=== PATIENT | female | born 1945 | race Caucasian/White ===

== ENCOUNTER 2018-07-27 16:02 | Observation (INO) | payer OTHER ==
[~2018-07-27] VITALS: Ht 160 cm; Wt 65.5 kg
--- NOTE | ~2018-07-27 | O ---
[facility] [place] [address] OPERATIVE REPORT Name: FRANKIANG Rashaad Room #: 431-P ADM IN M.R.#: [id number] Admission: 07/27/18 ������������������ Attend Phys: Varsha Witt, Discharge: ������������������ Date of : 49 Report #: [id number] THIS REPORT FOR: //name// CC: CASPER ELAM Physician staff Varsha Witt DATE OF SERVICE: 07/27/2018 PREOPERATIVE DIAGNOSIS: Right index finger infection including skin, subcutaneous tissue and the distal interphalangeal joint. POSTOPERATIVE DIAGNOSIS: Right index finger infection including skin, subcutaneous tissue and the distal interphalangeal joint. PROCEDURE PERFORMED: Incision and debridement of right index finger, skin, subcutaneous tissue and distal interphalangeal joint. SURGEON: Varsha Witt MD ANESTHESIA: Local MAC anesthesia. ESTIMATED BLOOD LOSS: 2 mL TOURNIQUET TIME: 11 minutes. SPECIMEN: Swab and tissue was sent to microbiology. INDICATIONS: The patient is a 73-year-old female who previously had undergone a mucous cyst excision with joint debridement. She presented to my office today with persistent soft tissue swelling, erythema, purulent drainage and pain. We discussed the diagnosis as well as treatment options including but not limited to, inability to resolve the infection necessitating more surgery, wound healing problems, damage to blood vessels, nerves and other structures. Informed consent was obtained. The correct extremity was identified and labeled by myself after verbal confirmation of the patient as well as visual confirmation and signed informed consent. DESCRIPTION OF PROCEDURE: The patient was brought back to the operating room and placed on the operating table in supine position. No preoperative antibiotics were given. She was given 1 g of vancomycin in the operating room after the cultures have been taken and directly after the tourniquet was deflated. The right extremity was sterilely prepped and draped in usual fashion. Final timeout was taken to verify correct patient, operative procedure, operative site, all concurred. The arm was elevated, exsanguinated proximal to the wrist and the tourniquet inflated. The prior surgical incision [address] [address] OPERATIVE REPORT Name: ANG DOAN Room #: 431-P [facility] IN M.R.#: [id number] Admission: 07/27/18 ������������������ Attend Phys: Varsha Witt, Discharge: ������������������ Date of : 49 Report #: [id number] was opened. There was a superficial layer of skin desquamation that was debrided. There was no purulent fluid, but whitish tissue that was removed. The extensor tendon was extremely thinned. The joint was immediately entered and thoroughly debrided with a synovial rongeur and new pair of tenotomy scissors. Any non-healthy white tissue was excised. The joint was then irrigated thoroughly using a 14-gauge angiocatheter and an Asepto with antibiotic saline. Once this area was cleaned, 2 simple 4-0 nylon stitches were used to close the tissue over the bone and joint. The wound was dressed with dry gauze. The tourniquet was deflated. The finger had brisk capillary refill at the conclusion of the case after deflation of tourniquet and after application of the dressing. All sponge and needle counts were correct. The patient was transferred to postoperative recovery room in stable condition. ��������������������������������������������� ���������������������������������������� By: ��������������������������������������������� 1902 [id number] Varsha Witt MD /nt
[~2018-07-27 16:02] MED LIST: ACETAMINOPHEN-1 EAC1 PO; ACTOS15 MG PO; AMARYL4 MG PO; CYMBALTA60 MG PO; GLUCOPHAGE1000 MG PO; MOBIC7.5 MG PO; MULTIVITAMINS PO; NORCO 5-325 TA1 EACH PO; VESICARE 5 MG TA5 MG PO; VOLTAREN GEL 1100 G1 TOP
[2018-07-27 18:21] VITALS: BP 126/60
[2018-07-27 19:26] LABS: BASOPHILS 1.2 % (0.0-2.0); EOSINOPHILS 2.7 % (0.0-3.0); HEMOGLOBIN 11.6 gm/dL (12.0-15.0); LYMPHOCYTES 19.2 % (24.0-44.0); MCH 26.1 pg (26.0-34.0); MCHC 33.1 g/dL (28.0-37.0); MONOCYTES 8.4 % (1.0-8.0); PLATELET COUNT 313 thou/uL (150-400); POLYS 68.5 % (36.0-66.0); RBC 4.44 mil/uL (4.20-5.00); RDW 16.8 % (10.5-14.5); WBC 5.8 thou/uL (4.0-11.0)
[2018-07-27 19:35] LABS: CALCIUM 8.9 mg/dL (8.5-10.1); CREATININE 0.7 mg/dL (0.6-1.0); POTASSIUM 3.5 mmol/L (3.5-5.1)
[2018-07-27 19:41] LABS: ALBUMIN 3.2 g/dL (3.4-5.0); TOTAL BILIRUBIN 0.3 mg/dL (<0.1-1.0); TOTAL PROTEIN 6.5 g/dL (6.4-8.2)
[2018-07-27 20:30] VITALS: BP 123/58
[2018-07-27 21:42] VITALS: BP 120/54
[2018-07-27 22:40] VITALS: BP 123/67
--- NOTE | 2018-07-28 02:19 | NUR ---
PT WAS ADMITTED TO THE UNIT P[facility] PACU IN THE COMPANY OF HER FAMILY IN A STABLE CONDITION.PT C/O PAIN ON HER R INDEX FINGER,MED ADMINISTERED,NOT EFFECTIVE,ICE APPLIED,NOT EFFECTIVE,CADD INSTRUCTOR ON DUTY NOTIFIED,ORDER NOTED AND CARRIED OUT.DRSG ON HER FINGER C/D/I.SCD ON JAMA OWER EXT.PT SLEEPING AT THIS TIME ON HER BED.FALL PRECAUTIONS IN PLACE.CALL LIGHT WITHIN REACH.
[2018-07-28 04:30] VITALS: BP 114/53
[2018-07-28 08:11] VITALS: BP 123/57
[2018-07-28 10:06] LABS: GLYCOHEMOGLOBIN (HGB A1C) 7.3 % (4.8-5.6)
--- NOTE | 2018-07-28 10:49 | NUR ---
CONSULTED TO PLACE A PICC FOR A PATIENT DISCHARING TO HOME WITH IV ANTIBIOTICS. ORDER AND CONSENT NOTED. THE PROCEDURE WELL BENIFITS AND RISKS OF INFECTION AND DVT WERE DISCUSSED WITH THE PATIENT AND SHE VERBALIZED UNDERSTANDING. THE RIGHT UPPER ARM BASILIC WAS WIDLEY PATENT. A #4F SINGLE LUMEN POWER PICC WAS PLACED AFTER A BEDSIDE TIMEOUT WAS COMPLETED. THE PICC WAS TRIMMED TO 39CM AND ADVANCED WITHOUT DIFFICULTY. LINE WAS SECURED AND A STAT CHEST XRAY WAS ORDERED FOR CONFIRMATION
--- NOTE | 2018-07-28 12:11 | NUR ---
ASSESSMENT-PT LIVES IN A HOUSE WITH HER . PRIOR TO ADMISSION PT WAS INDEPENDENT OF ADLS AND AMBULATION. PT DRIVES. HER DTR AND 2 GRANDCHILDREN LIVE WITH THEM. PT HAS HAD [facility] IN THE PAST AND WOULD LIKE TO USE THEM AGAIN. EXPLAINED OPTIONS FOR IV ABX. FOLLOWING TO ASSIST WITH DC PLANNING. OFFERED CHOICES WITHIN HER INS NETWORK. PT CHOSE [facility] AND [facility]. FAXED REFERRAL TO CHECK BENEFITS TO [facility].
--- NOTE | 2018-07-28 14:06 | NUR ---
DR Jerod MCGINNISHA HERE TO SEE PT AND SHE TELLS HIM THAT THERE WOULD BE TOO MUCH COMMOTION AT MY HOUSE AND SHE WOULD LIKE TO COME HERE FOR OUTPT INFUSION. FAXED ORDERS TO [facility] IN OUTPT INFUSION AND S/W HER TO ALERT OF THIS. PT PREFERS TO COME IN THE MORNINGS IF POSSIBLE.
[2018-07-28 15:11] VITALS: BP 123/57
[2018-07-28 15:46] VITALS: BP 124/63
--- NOTE | 2018-07-28 18:07 | NUR ---
SPOKE WITH DR ALANIS GAVE VERBAL ORDER TO DISCHARGE PATIENT HOME. HAS INFUSION THERAPY SCEDULED INFO ON DISCHARGE PAPERS. WOUND ORDERS AND SUPPLIES SENT WITH PATIENT. ALL BELONGINGS SENT WITH PATIENT. PICC LINE PLACED TODAY TO RIGHT UPPER ARM.
--- NOTE | 2018-07-28 20:31 | NUR ---
PATIENT DISCHARGED AT 191. DAUGHTER HERE TO TAKE HER HOME. ALL BELONGINGS PACKED AND SENT WITH PATIENT ALL DISCHARGE PAPERS SIGNED AND COPY IN CHART VOLUNTER HERE TO TAKE PATIENT VIA W/C TO MAIN ENTRANCE AND FAMILY CAR. NO PAIN OR RESP DISTRESS AT DISCHARGE.
[2018-07-29] MEDS ORDERED: METFORMIN HCL500 MG PO (10:26)
[2018-07-29] MEDS ORDERED: OXYBUTYNIN 5 MG5 M2 PO (10:28)
[2018-07-29] MEDS ORDERED: DEXILANT30 MG PO (10:29)
[2018-07-29] MEDS ORDERED: JARDIANCE25 MG PO (10:31)
[2018-07-29] MEDS ORDERED: TRESIBA FL100 UNIT/1 SUBQ (10:33)
[2018-07-29] MEDS ORDERED: ATORVASTATIN CA40 MG PO (10:34)
[2018-07-29] MEDS ORDERED: VISTARIL 25 MG25 M1 PO (10:35)
[2018-07-29] MEDS ORDERED: TRAMADOL 50 MG50 MG PO (10:36)
[2018-07-29] MEDS ORDERED: REQUIP5 MG PO (10:38)
--- NOTE | 2018-08-02 16:34 | HC ---
[facility] [place] [address] CONSULTATION Name: ANG DOAN Room #: 431-P [facility] Shelia Scruggs#: [id number] Admission: 07/27/18 ������������������ Attend Phys: Varsha Witt, Discharge: 07/28/18 ������������������ Date of : 47 Report #: [id number] THIS REPORT FOR: //name// CC: CASPER ELAM Physician staff Varsha Witt DATE OF SERVICE: 07/28/2018 TYPE OF REPORT: Infectious disease consultation. REASON FOR CONSULTATION: I was asked to evaluate concerning surgical site infection, right second finger. HISTORY OF PRESENT ILLNESS: The patient is a 73-year-old who had a longstanding history of right distal phalanx mucous cyst that involved the DIP joint. On 07/19/2018, Dr. Witt did an excision of such and debridement. Postoperatively, developed increased pain, swelling and erythema. The pain was persistent with lancing type pain, did not improve with oral narcotics. Developed erythema that extended up to the MCP joint region. Seen in the Emergency Room and placed on cephalexin. No improvement with this. She was seen back by Dr. Witt and performed x-rays, which showed no evidence of bony change. She was taken to Surgery yesterday for debridement of the soft tissues and joint. Gram stains are pending. Cultures are pending. The patient has had no fever, chills or sweats. Blood sugar control has been less than 200 fasting. Hemoglobin A1c was 7.3. She is a nonsmoker. She reports no other specific trauma postop. She has had no rashes or other systemic illnesses noted. ALLERGIES: CODEINE with GI upset. MEDICATIONS: As noted on her MAR, which were reviewed. Now on vancomycin. PAST MEDICAL HISTORY: Diabetes, hyperlipidemia, restless leg syndrome, degenerative arthritis, iron-deficiency anemia, gastroesophageal reflux, depression, hysterectomy, bilateral total knee arthroplasties, neck and lumbar back surgeries and kidney stone extraction. FAMILY HISTORY: Heart disease. SOCIAL HISTORY: Nonsmoker. No significant alcohol intake. REVIEW OF SYSTEMS: Ten-point review was negative other than what has been described above. PHYSICAL EXAMINATION: [facility] [address] [place] [address] CONSULTATION Name: ANG DOAN Room #: 431-P [facility] Shelia Scruggs#: [id number] Admission: 07/27/18 ������������������ Attend Phys: Varsha Witt, Discharge: 07/28/18 ������������������ Date of : 49 Report #: [id number] VITAL SIGNS: She is afebrile and hemodynamically stable. GENERAL: She was alert and cooperative and pleasant with no acute distress. SKIN: Without rash or decubitus other than what will be described in her extremity examination. No palpable lymphadenopathy. HEENT: Eyes: Without scleral icterus. Mouth: She was edentulous with no lesions. NECK: Supple, with no thyromegaly or mass. LUNGS: Clear. HEART: Regular, without murmur, gallop or rub. ABDOMEN: Soft and nontender. GENITORECTAL: Not performed. EXTREMITIES: Right second finger erythematous from tip to MCP region. There was surgical change involving the dorsum of her DIP joint. Moderate amount of surrounding inflammation and serous drainage noted. The finger was anesthetic to the distal phalanx. She had limited range of motion in the PIP and DIP joint. There is erythema and swelling that extended from her distal phalanx to her MCP joint region. Capillary refill was normal. Pulses in the wrist were normal. Cranial nerves intact. Strength in her upper and lower extremities is normal. Pulses in the wrist were normal. RADIOLOGICAL DATA: Chest x-ray, clear. LABORATORY DATA: Hemoglobin A1c 7.3. Sedimentation rate 68. Creatinine 0.7. Liver function test normal. Hemoglobin 11.6; platelet count 313,000 and WBC 5.8. Cultures from the blood are pending. Culture of the wound for bacteria, fungus and AFB are pending. IMPRESSION: 1. Right index finger surgical site infection with deep tissue involvement along with septic distal interphalangeal joint arthritis. 2. Diabetes. 3. Postoperative from mucous cyst excision and joint debridement 9 days ago. RECOMMENDATIONS: We will continue IV antibiotic therapy. The patient desired to present to the outpatient infusion center daily. We will go with daptomycin pending culture results. Check laboratory studies and CPK. We will adjust her antibiotics pending further culture information. The patient will continue with diabetic management keeping blood glucose less than 150. She will continue localized wound care and rehabilitation through occupational therapy as appropriate. ��������������������������������������������� <ELECTRONICALLY SIGNED> ���������������������������������������� By: Keven Gonzalez MD ��������������������������������������������� 08/02/18 1634 [id number] Keven Gonzalez MD /nt
== END 2018-07-28 19:15 | disposition home or self-care (01) ==
LOC: TBA 16:02 → 4E 16:02
PROVIDERS: ADMIT Orthopaedic Surgery Hand Surgery
DX: L08.89 Other specified local infections of the skin and subcutaneous tissue (principal); M00.9 Pyogenic arthritis, unspecified; E11.9 Type 2 diabetes mellitus without complications; M19.90 Unspecified osteoarthritis, unspecified site; G25.81 Restless legs syndrome; D50.9 Iron deficiency anemia, unspecified; F32.9 Major depressive disorder, single episode, unspecified; Z79.4 Long term (current) use of insulin; Z79.899 Other long term (current) drug therapy
CPT/HCPCS: 27000; 50010; 50101; 50386; 56526; 57091; 57178; 62110; 62850; 70005

== ENCOUNTER → 2018-07-30 | Outpatient (CLI) | payer OTHER ==
[~2018-07-30] MED LIST changes: +ATORVASTATIN CA40 MG PO; +DEXILANT30 MG PO; +GLUCOPHAGE XR500 MG PO; +JARDIANCE25 MG PO; +METFORMIN HCL500 MG PO; +OXYBUTYNIN 5 MG5 M2 PO; +REQUIP5 MG PO; +RESTORIL7.5 MG PO; +TRAMADOL 50 MG50 MG PO; +TRESIBA FL100 UNIT/1 SUBQ; +VISTARIL 25 MG25 M1 PO
[2018-07-30 09:10] VITALS: BP 119/62
--- NOTE | 2018-07-30 09:28 | NUR ---
HERE FOR DAILY IV DAPTOMYCIN INFUSION. REPORTS DOING OK. DENIED NOTING ANY FEVERS BUT DID SAY SHE HAS BEEN HAVING SWEATS OFF AND ON FOR DAYS. SLIGHT NAUSEA YESTERDAY, OK TODAY. R FINGER PAINFUL. TAKING HYDROCODONE FOR THIS. ENCOURAGED PT TO KEEP HAND ELEVATED MUCH POSSIBLE. DRESSING ON FINGER D/I. PT IS WASHING WOUND AND CHANGING DRESSING 3 x A DAY AT HOME. ENCOURAGED PT TO GET A THERMOMETER TO CHECK HER TEMP A COUPLE TIMES/DAY, ESPECIALLY AFTER THE CHILLS. TOLERATED INFUSION TODAY WITHOUT INCIDENT. NO S/S REACTION. PICC LINE LOOKS GOOD. INSTRUCTION GIVEN TO PT TO REPORT TO THE ED OVER THE WEEKEND FOR HER INFUSION THEN BACK TO US ON THURSDAY.
== END ==
LOC: OPONC 07:25
DX: M00.9 Pyogenic arthritis, unspecified (principal)
CPT/HCPCS: 95000

== ENCOUNTER → 2018-07-31 | Outpatient (CLI) | payer OTHER | LOC: OPONC 11:16 | DX: M00.9 Pyogenic arthritis, unspecified (principal) | CPT/HCPCS: 95000 ==

== ENCOUNTER → 2018-08-01 | Outpatient (CLI) | payer OTHER | LOC: OPONC 11:17 | DX: M00.9 Pyogenic arthritis, unspecified (principal) | CPT/HCPCS: 95000 ==

== ENCOUNTER → 2018-08-02 | Outpatient (CLI) | payer OTHER ==
[~2018-08-02] MED LIST changes: -GLUCOPHAGE XR500 MG PO; -RESTORIL7.5 MG PO
[2018-08-02 13:12] VITALS: BP 125/74
--- NOTE | 2018-08-02 13:46 | NUR ---
IN FOR DAPTOMYCIN INFUSION FOR RIGHT 2ND FINGER DIP JOINT SEPTIC ARTHRITIS. STATED HAVING 1 DIARRHEA STOOL DAILY, HAD A BOUT OF CHILLS THIS AM THAT LASTED FOR APPROXIMATELY 15 MINUTES. SHE THEN TOOK SOME TYLENOL. ASKED PATIENT TO TAKE HER TEMPERATURE IF SHE HAS ANY MORE CHILLS AND IF GREATER THAN [address] HADDAD AND REPORT IT TO US. DENIED NAUSEA, PAIN, INCREASED MUSCLE WEAKNESS. STATED HAS A POOR APPETITE AND FOOD JUST DOES NOT APPEAL TO HER. ENCOURAGED PATIENT TO TRY TO EAT ANYTHING THAT APPEALS TO HER. TOLERATED INFUSION WELL WITH NO ADVERSE REACTION NOTED. PICC SITE WNL AND RECEIVED GOOD BLOOD RETURN. TO RETURN TOMORROW FOR NEXT INFUSION. DISMISSED IN STABLE CONDITION.
== END ==
LOC: OPONC 08:39
DX: M00.9 Pyogenic arthritis, unspecified (principal)
CPT/HCPCS: 95000

== ENCOUNTER → 2018-08-03 | Outpatient (CLI) | payer OTHER ==
[2018-08-03 09:05] VITALS: BP 121/70
--- NOTE | 2018-08-03 10:06 | NUR ---
HERE FOR DAILY IV DAPTOMYCIN INFUSION. REPORTS DOING WELL. CONTINUES TO CHANGE DRESSING AT HOME AND WASH FINGER TID. KEEPING RT PICC LINE PROTECTED, DSG INTACT. TAKING TEMPS DURING DAY AND NOT NOTICING A FEVER. STATES LESS NIGHT SWEATS AND CHILLING, NONE IN A COUPLE NIGHTS. POOR APPETITE AND SLIGHT DIARRHEA WHICH SHE STATES IS BASELINE FOR HER. DENIES MUSCLE WEAKNESS OR PAINS. TOLERATED TODAY'S INFUSION WITHOUT INCIDENT. DISMISSED IN STABLE CONDITION. WILL RETURN IN THE MORNING.
== END ==
LOC: OPONC 00:12
DX: M00.9 Pyogenic arthritis, unspecified (principal)
CPT/HCPCS: 95000

== ENCOUNTER → 2018-08-04 | Outpatient (CLI) | payer OTHER ==
[2018-08-04 09:10] VITALS: BP 142/79
[2018-08-04 09:26] LABS: HEMATOCRIT 36.5 % (37.0-47.0); HEMOGLOBIN 12.1 gm/dL (12.0-15.0); MCH 25.7 pg (26.0-34.0); MCHC 33.2 g/dL (28.0-37.0); MCV 77.4 fL (80.0-100.0); RBC 4.72 mil/uL (4.20-5.00); RDW 16.7 % (10.5-14.5); WBC 4.9 thou/uL (4.0-11.0)
[2018-08-04 09:43] LABS: ALBUMIN 3.5 g/dL (3.4-5.0); CALCIUM 9.2 mg/dL (8.5-10.1); CREATININE 0.7 mg/dL (0.6-1.0); POTASSIUM 3.7 mmol/L (3.5-5.1); TOTAL BILIRUBIN 0.2 mg/dL (<0.1-1.0); TOTAL PROTEIN 6.9 g/dL (6.4-8.2)
--- NOTE | 2018-08-04 09:50 | NUR ---
HERE FOR DAILY IV DAPTOMYCIN. REPORTS DOING OK BUT NOTICED INCREASE LEVEL OF FATIGUE YESTERDAY AND TODAY. NO OTHER ISSUES NOTED. CONTINUING TO CLEANSE R 2ND FINGER TID AND REDRESS AFTER. DRS D/I. LABS DRAWN TODAY PER PICC. TOLREATED INFUSION WITHOUT INCIDENT. PLANS TO SEE DR. HADDAD HERE ON THU. SEEING DR. ALANIS TODAY. DISMISSED IN STABLE CONDITIO. WILL RETURN HERE IN THE MORNING.
== END ==
LOC: OPONC 01:51
PROVIDERS: Specialist
DX: M00.9 Pyogenic arthritis, unspecified (principal)
CPT/HCPCS: 95000

== ENCOUNTER → 2018-08-05 | Outpatient (CLI) | payer OTHER ==
[~2018-08-05] MED LIST changes: +GLUCOPHAGE XR500 MG PO; +RESTORIL7.5 MG PO
[2018-08-05 09:00] VITALS: BP 120/66
--- NOTE | 2018-08-05 09:40 | NUR ---
IN FOR DAILY IV DAPTOMYCIN. REPORTS DOING OK. FATIGUED IN THE EVENING BUT AWAKENS FEELING OK. DENIES N/V/DIARRHEA, FEVER/CHILLS/SWEATS. NO CONCERNS NOTED. SAW DR. ALANIS YESTERDAY AND PLANS TO RETURN AGAIN IN ONE WEEK. CONTINUES TO CHANGE FINGER DRESSING AND WASH FINGER TID. DRESSING TODAY D/I, NO REDNESS NOTED AT BASE OF FINFER, MOST OF FINGER COVERED. DISMISSED IN STABLE CONDIITION. WILL RETURN AGAIN IN THE MORNING AND WILL SEE DR. HADDAD AT THAT VISIT.
== END ==
LOC: OPONC 00:54
DX: M00.9 Pyogenic arthritis, unspecified (principal)
CPT/HCPCS: 95000

== ENCOUNTER → 2018-08-06 | Outpatient (CLI) | payer OTHER ==
[2018-08-06 15:34] VITALS: BP 122/71
--- NOTE | 2018-08-06 15:37 | NUR ---
IN FOR DAILY DAPTOMYCIN INFUSION. DENIED N/V, F/C, DIARRHEA. TOLERATED INFUSION WITHOUT INCIDENT. DR. HADDAD VISITED. TO CONTINUE THE SAME. REMINDED PATIENT TO GO TO ED THROUGHT THURSDAY FOR INFUSIONS WE ARE CLOSED ON THURSDAY FOR . STATED UNDERSTANDING. DISMISSED IN STABLE CONDITION.
== END ==
LOC: OPONC 00:13
DX: M00.9 Pyogenic arthritis, unspecified (principal); A49.02 Methicillin resistant Staphylococcus aureus infection, unspecified site
CPT/HCPCS: 95000

== ENCOUNTER → 2018-08-07 | Outpatient (CLI) | payer OTHER | LOC: OPONC 08:30 | DX: M00.9 Pyogenic arthritis, unspecified (principal) | CPT/HCPCS: 95000 ==

== ENCOUNTER → 2018-08-08 | Outpatient (CLI) | payer OTHER | LOC: OPONC 08-07 08:33 | DX: M00.9 Pyogenic arthritis, unspecified (principal) | CPT/HCPCS: 95000 ==

== ENCOUNTER → 2018-08-09 | Outpatient (CLI) | payer OTHER | LOC: OPONC 08-06 11:14 | DX: M00.9 Pyogenic arthritis, unspecified (principal) | CPT/HCPCS: 95000 ==

== ENCOUNTER → 2018-08-10 | Outpatient (CLI) | payer OTHER ==
[2018-08-10 12:40] VITALS: BP 133/70
--- NOTE | 2018-08-10 12:42 | NUR ---
IN FOR DAILY DAPTOMYCIN INFUSION. STATED HAVING SOME NAUSEA FOR THE LAST 2 DAYS, HOWEVER WAS ABLE TO EAT YESTERDAY. STATED ALSO HAD SOME DIARRHEA. STATED PAIN TO RIGHT FINGER #4. SPOKE WITH DR. HADDAD AND CALLED IN A PRESCRIPTION FOR ZOFRAN. TOLERATED INFUSION WITHOUT INCIDENT. TO RETURN TOMORROW FOR NEXT INFUSION. DISMISSED IN STABLE CONDITION.
== END ==
LOC: OPONC 00:37
DX: M00.9 Pyogenic arthritis, unspecified (principal)
CPT/HCPCS: 95000

== ENCOUNTER 2018-08-11 05:27 | Day surgery (SDC) | payer OTHER ==
[~2018-08-11] VITALS: Ht 160 cm; Wt 62.1 kg
--- NOTE | ~2018-08-11 | O ---
[facility] [place] [address] OPERATIVE REPORT Name: ANG DOAN Room #: 150-6 [facility] M..#: [id number] Admission: 08/11/18 ������������������ Attend Phys: Varsha Witt, Discharge: ������������������ Date of : 49 Report #: [id number] THIS REPORT FOR: //name// CC: FAM unknown Varsha Witt DATE OF SERVICE: 08/11/2018 PREOPERATIVE DIAGNOSES: Right index finger osteomyelitis with infection. POSTOPERATIVE DIAGNOSES: Right index finger osteomyelitis with infection. PROCEDURE PERFORMED: Right index finger incision and debridement of skin, subcutaneous tissue and bone. SURGEON: Varsha Witt MD. ANESTHESIA : General mask. ESTIMATED BLOOD LOSS: Approximately 1 mL. TOURNIQUET TIME: 70 minutes. COMPLICATIONS: Sent to pathology and microbiology. COMPLICATIONS: None. CONDITION: Stable. DISPOSITION: Recovery room. INDICATIONS: The patient is a 73-year-old female who has had wound healing problems and progressive extension of her infection. She now is found to have osteomyelitis of the distal phalanx. The risks, benefits, alternatives and complications were discussed including but not limited to inability to resolve the infection necessitating more surgery, possibly an amputation, wound healing problems, and she will have a chronic deformity to the finger. DESCRIPTION OF PROCEDURE: Informed consent was obtained. The correct extremity was identified and labeled by myself after verbal confirmation of the patient as well as visual confirmation and signed informed consent. DESCRIPTION OF PROCEDURE: The patient was brought back to the operative room and placed on the operating table in supine position. Right upper extremity was sterilely prepped and draped in the usual fashion. A timeout was taken to verify correct patient, operative procedure and site, all concurred. The [address] [address] OPERATIVE REPORT Name: FRANKIANG Rashaad Room #: 150-6 [facility] M..#: [id number] Admission: 08/11/18 ������������������ Attend Phys: Varsha iWtt, Discharge: ������������������ Date of : 49 Report #: [id number] forearm tourniquet was utilized. The arm was not exsanguinated or elevated. Next, the eschar was removed from the dorsum of the finger, the wound was entered. There was a 5 mm area on the ulnar border that had not healed and fibrinous tissue was obtained. The dorsal aspect of the P3 was evaluated. The bone was very soft. Any soft bone was removed with a curette. The area was then thoroughly irrigated with 2 liters of antibiotic saline. Fluoroscopy was brought in, which showed significant bony destruction of the distal phalanx. Once the wound was thoroughly irrigated, the finger was extended. The wound was closed with 4-0 nylon suture. The wound was dressed with Xeroform and sterile gauze. She was placed in a finger splint in order to allow healing. All fingers were pink with brisk capillary refill at the conclusion of case after deflation of the tourniquet and after application of the dressing. All sponge and needle counts were correct. The patient was transferred to postoperative recovery room in stable condition. ��������������������������������������������� ���������������������������������������� By: ��������������������������������������������� 0751 [id number] Varsha Witt MD /nt
[2018-08-11 07:37] VITALS: BP 122/65
[2018-08-11 08:05] VITALS: BP 122/65
--- NOTE | 2018-08-11 08:16 | EKG ---
[address] [address] ELECTROCARDIOGRAM REPORT Name: ANG DOAN Room #: 150-6 [facility].#: [id number] ������������������ Admission: 08/11/18 ������������������ Attend Phys: Varsha Witt, Discharge: ������������������ Date of : 49 Report #: [id number] ����������������������������������������������������������������� [id number] THIS REPORT FOR: //name// [facility] Test Date: 2018-08-11 Test Time: 06:31:28 Pat Name: ANG DOAN Department: Room: 150 6 Gender: F Pot Reliner: dione : 1945 Requested By: Lesly Power Order Number: [id number] MD: Michael Ragland Measurements Intervals [place] Rate: 71 P: 32 [place]: 153 QRS: -7 QRSD: 74 T: 32 QT: 408 QTc: 444 Interpretive Statements Sinus rhythm Left ventricular hypertrophy Baseline wander in lead(s) V6 Compared to ECG 05/11/2007 13:44:53 Left ventricular hypertrophy now present Electronically Signed On 08-11-2018 8:16:41 CDT by Michael Ragland [email or web address] ��������������������������������������������� <ELECTRONICALLY SIGNED> ���������������������������������������� By: Michael Ragland MD ��������������������������������������������� 08/11/18 0816 0 Michael Ragland MD /EPI
[2018-08-11 09:05] VITALS: BP 120/64
[2018-08-11 09:10] LABS: HEMATOCRIT 33.8 % (37.0-47.0); HEMOGLOBIN 11.2 gm/dL (12.0-15.0); MCH 25.9 pg (26.0-34.0); MCHC 33.2 g/dL (28.0-37.0); RBC 4.33 mil/uL (4.20-5.00); RDW 16.7 % (10.5-14.5); WBC 6.2 thou/uL (4.0-11.0)
--- NOTE | 2018-08-11 09:17 | NUR ---
HERE FOR DAILY DAPTOMYCIN INFUSION. ARRIVED DIRECTLY FROM PACU S/P I&D R 2ND FINGER. DRESSING D/I, HAND ELEVATED ON PILLOW, ICE PACK KEPT IN PLACE. PT AND STATE THEY HAVE RECEIVED ALL THEIR INSTRUCTIONS FROM SURGERY AND VERBALIZE THAT PT IS TO KEEP FINGER DRESSED AND DRY UNTIL SEEN BY DR. ALANIS IN THE OFFICE AGAIN ON THURSDAY. THEY STATE SHE WILL WORK THEM IN WHENEVER IT IS GOOD. THEY PLAN TO VISIT HER UPON COMPLETION OF HER INFUSION HERE ON THURSDAY. PICC LINE INTACT, GOOD BLOOD RETURN. TOLERATED INFUSION WITHOUT INCIDENT. HAS BEEN NAUSEATED THE LAST FEW DAYS. HAS SCRIPT FOR ANTI NAUSEA MED WITH HER AND I BELIEVE A SCRIPT MAY HAVE BEEN CALLED IN LAST NIGHT FOR THIS PATIENT FROM DR. CATIE PHELAN. DENIES RECENT FEVER/CHILLS. HAS PAIN MEDS AVAILABLE AT HOME. WILL PLAN TO RETURN HERE AGAIN TOMORROW MORNING FOR HER INFUSION.
[2018-08-11 09:26] LABS: ALBUMIN 3.2 g/dL (3.4-5.0); ANION GAP 11 mmol/L (7-16); BUN 22 mg/dL (7-18); CALCIUM 8.7 mg/dL (8.5-10.1); CHLORIDE 102 mmol/L (98-107); CO2 25 mmol/L (21-32); CREATININE 0.8 mg/dL (0.6-1.0); GLUCOSE 163 mg/dL (74-106); POTASSIUM 3.5 mmol/L (3.5-5.1); SGOT 15 U/L (15-37); SGPT 20 U/L (30-65); SODIUM 138 mmol/L (136-145); TOTAL BILIRUBIN < 0.1 mg/dL (<0.1-1.0); TOTAL PROTEIN 6.7 g/dL (6.4-8.2)
--- NOTE | 2018-08-13 13:08 | PATH ---
[facility] [address] [place] [address] PATHOLOGY RPT PROCEDURE Name: ANG DOAN Rashaad Room #: DEP [facility] M.R.#: [id number] ������������������ Admission: 08/11/18 ������������������ Date of : 49 Discharge: 08/11/18 Report #: [id number] Path Case #: [id number] [facility] Accession Number: [id number] . 01 Material submitted: . finger - RIGHT INDEX FINGER BONE. Modifiers: right, INDEX FINGER . 01 Clinical history: . Osteomyelitis . 02 Diagnosis: Bone, right index finger bone, debridement: - Fragments of necrotic bone surrounded by acute and chronic inflammation as well as granulation tissue, consistent with debridement tissue. . (IUV:mml; 08/12/2018) QLM/08/12/2018 . 02 Electronically signed: . Ana Kelly MD, Pathologist NPI- [id number] . 01 Gross description: . The specimen is received in formalin, labeled "Ang Doan, right index finger bone". Received is a segment of light huston bone measuring 0.5 x 0.3 x 0.1 cm in greatest dimensions. The specimen is submitted entirely in cassette A1, following light decalcification. (CAA; 08/11/2018) QAC/QAC . 02 Pathologist provided ICD-10: M86.141, M86.641 . 02 CPT . 712032, 373643 Specimen Comment: A courtesy copy of this report has been sent to Specimen Comment: [phone]. Specimen Comment: Report sent to Performed at: [address], [place], [place] [id number] MD Sudhir Pack MD Phone: [phone] Performed at: [address], [place] [id number] MD Ana Kelly MD Phone: [phone]
== END 2018-08-11 08:50 | disposition home or self-care (01) ==
LOC: OR 05:27 → OPONC 05:27 → TBA 05:27 → OR 08:50
PROVIDERS: Specialist
DX: M86.141 Other acute osteomyelitis, right hand (principal); M86.641 Other chronic osteomyelitis, right hand; I10 Essential (primary) hypertension; E78.5 Hyperlipidemia, unspecified; E11.9 Type 2 diabetes mellitus without complications; D64.9 Anemia, unspecified; F32.9 Major depressive disorder, single episode, unspecified; K21.9 Gastro-esophageal reflux disease without esophagitis; Z85.3 Personal history of malignant neoplasm of breast; M19.90 Unspecified osteoarthritis, unspecified site; Z87.442 Personal history of urinary calculi; Z88.6 Allergy status to analgesic agent; Z90.710 Acquired absence of both cervix and uterus; Z98.890 Other specified postprocedural states; Z96.653 Presence of artificial knee joint, bilateral; Z79.899 Other long term (current) drug therapy; Z79.4 Long term (current) use of insulin
CPT/HCPCS: 50010; 50101; 50386; 56526; 57006; 57091; 57178; 62110; 62900; 70005; 95000

== ENCOUNTER → 2018-08-12 | Outpatient (CLI) | payer OTHER ==
[2018-08-12 10:05] VITALS: BP 97/47
--- NOTE | 2018-08-12 10:45 | NUR ---
HERE FOR DAILY IV DAPTOMYCIN. REPORTS DOING WELL POST SURGERY YESTERDAY. SLEPT WELL, NAUSEA GONE THIS MORNING. NO NOTED FEVER/CHILLS/SWEATS. TOLERATED INFUSION TODAY WITHOUT INCIDENT. DISMISSED IN STABLE CONDITION. WILL RETURN TOMORROW FOR INFUSION AND TO SEE DR. HADDAD.
== END ==
LOC: OPONC 01:10
DX: M00.9 Pyogenic arthritis, unspecified (principal)
CPT/HCPCS: 95000

== ENCOUNTER → 2018-08-13 | Outpatient (CLI) | payer OTHER ==
[2018-08-13 09:51] VITALS: BP 87/50
[2018-08-13 10:03] VITALS: BP 92/55
[2018-08-13 11:25] VITALS: BP 115/65
[2018-08-13 11:26] VITALS: BP 90/54
[2018-08-13 13:31] VITALS: BP 117/62
--- NOTE | 2018-08-13 13:40 | NUR ---
PT HERE FOR DAILY DAPTOMYCIN INFUSION. UPON ARRIVAL SKIN FELT WARM BUT A LITTLE CLAMMY. PT STATES SHE HAD BEEN SWEATING SOME ON WAY TO THE CLINIC BUT DENIED ANY NOTED SWEATS OR FEVERS OTHERWISE IN LAST FEW DAYS. HAD SOME NAUSEA LAST NIGHT, APPETITE POOR. TOOK HER ZOFRAN WHICH SHE STATES HELPS. DRINKING ENSURE TO TRY TO INCREASE PROTEIN INTAKE. BP LOW UPON ARRIVAL AT 87/50. PT DENIES BEING SYMPTOMATIC OTHER THAN BEING SO TIRED ALL THE TIME. DAPTO INFUSION COMPLETED WITHOUT INCIDENT PT AWAITED WEEKLY VISIT FROM DR. HADDAD. ORIGINAL POST OP DRESSING REMAINS D/I ON R 2ND FINGER. PT WILL SEE DR. ALANIS IMMEDIATELY FOLLOWING TODAY'S VISIT. DR. HADDAD ROUNDED, INFORMED OF LOW BP. ORDER RECEIVED. ORTHOSTATIC BP'S TAKEN AND PT DID DROP SIGNIFICANTLY (115/65 TO 90/54), HR ELEVATED WITH POSITION CHANGE WELL (83 TO 92). ONE LITER OF NORMAL SALINE GIVEN ORDERED, PT ATE SOME LUNCH WELL. BP UPON COMPLETION WAS 127/60 WITH DROP TO 117/62 WHEN STANDING. PT STATES FEELING BETTER. DISMISSED WITH TO DR. ALANIS'S OFFICE. WILL RECEIVE WEEKEND INFUSIONS IN THE ED AND RETURN TO THE INFUSION CLINIC ON Thursday.
== END ==
LOC: OPONC 00:50
DX: M00.9 Pyogenic arthritis, unspecified (principal)
CPT/HCPCS: 95000

== ENCOUNTER → 2018-08-14 | Outpatient (CLI) | payer OTHER | LOC: OPONC 08-11 00:50 → SPEC 08-11 10:14 → OPONC 08-11 14:23 | DX: M00.9 Pyogenic arthritis, unspecified (principal) | CPT/HCPCS: 95000 ==

== ENCOUNTER → 2018-08-15 | Outpatient (CLI) | payer OTHER ==
[~2018-08-15] MED LIST changes: -ATORVASTATIN CA40 MG PO; +DAPTOMYCIN500 MG IV; -DEXILANT30 MG PO; +DEXILANT60 MG PO; +DIFLUCAN100 MG PO; +DOXYCYCLINE 10100 MG PO; +INVANZ1 GM IV; +IRON325 PO; +LIPITOR80 MG PO; +NEURONTIN 300300 M1 PO; +REQUIP XL2 MG PO; -REQUIP5 MG PO
== END ==
LOC: OPONC 07:39
DX: M00.9 Pyogenic arthritis, unspecified (principal)
CPT/HCPCS: 95000

== ENCOUNTER → 2018-08-16 | Outpatient (CLI) | payer OTHER ==
[2018-08-16 10:10] VITALS: BP 114/67
--- NOTE | 2018-08-16 10:45 | NUR ---
HERE FOR DAILY IV DAPTOMYCIN INFUSION. REPORTS DOING WELL, EATING A LITTLE BETTER, PAIN BETTER. SAW DR. ALANIS ON THURSDAY AND IS NOW CHANGING HER RT 2ND FINGER DRESSING DAILY. STATES FEELS IT IS LOOKING A LITTLE BETTER. TOLERATED TODAY'S INFUSION WITHOUT INCIDENT, NO S/S REACTION. DISMISSED IN STABLE CONDITION. WILL RETURN AGAIN TOMORROW.
== END ==
LOC: OPONC 00:17
DX: M00.9 Pyogenic arthritis, unspecified (principal)
CPT/HCPCS: 95000

== ENCOUNTER → 2018-08-17 | Outpatient (CLI) | payer OTHER ==
[2018-08-17 10:00] VITALS: BP 102/65
--- NOTE | 2018-08-17 11:09 | NUR ---
HERE FOR DAILY DAPTOMYCIN INFUSION. REPORTS DOING OK, EATING OK, NO NAUSEA OVER THE LAST DAY. HOWEVER, CONCERN VOICED TODAY ABOUT TIP OF R 2ND FINGER. STATES IT FEELS LOOSE, LIKE IT'S NOT ATTACHED. SHE STATED THAT IT FELT LIKE THE TIP OF HER FINGER WAS GOING TO FALL OFF WHEN SHE CHANGED HER DRESSING. STATES THE COLOR OF THE FINGER IS UNCHANGED, NO INCREASED SWELLING OR DRAINAGE BUT THIS IS A NEW FINDING. NOTIFIED DR. ALANIS THROUGH HER NURSE AND RESPONSE BACK FROM DR. ALANIS IS TO KEEP THE SPLINT ON AT ALL TIMES, CONTINUE THE DRESSING CHANGES AND KEEP THE THURSDAY APPT WITH HER. PT NOTIFIED AND VERBALIZES UNDERSTANDING. TOLERATED TODAY'S INFUSION WITHOUT INCIDENT. DISMISSED IN STABLE CONDITION. WILL RETURN IN THE MORNING.
== END ==
LOC: OPONC 01:45
DX: M00.9 Pyogenic arthritis, unspecified (principal)
CPT/HCPCS: 95000

== ENCOUNTER → 2018-08-18 | Outpatient (CLI) | payer OTHER ==
[~2018-08-18] MED LIST changes: +ATORVASTATIN CA40 MG PO; -DAPTOMYCIN500 MG IV; +DEXILANT30 MG PO; -DEXILANT60 MG PO; -DIFLUCAN100 MG PO; -DOXYCYCLINE 10100 MG PO; -INVANZ1 GM IV; -IRON325 PO; -LIPITOR80 MG PO; -NEURONTIN 300300 M1 PO; -REQUIP XL2 MG PO; +REQUIP5 MG PO
[2018-08-18 10:15] VITALS: BP 95/58
[2018-08-18 10:29] LABS: HEMATOCRIT 33.9 % (37.0-47.0); HEMOGLOBIN 11.3 gm/dL (12.0-15.0); MCH 26.1 pg (26.0-34.0); MCHC 33.4 g/dL (28.0-37.0); MCV 78.2 fL (80.0-100.0); RBC 4.34 mil/uL (4.20-5.00); RDW 16.6 % (10.5-14.5); WBC 4.8 thou/uL (4.0-11.0)
[2018-08-18 10:48] LABS: ALBUMIN 3.3 g/dL (3.4-5.0); CREATININE 0.7 mg/dL (0.6-1.0); POTASSIUM 3.9 mmol/L (3.5-5.1); TOTAL BILIRUBIN 0.3 mg/dL (<0.1-1.0)
--- NOTE | 2018-08-18 11:01 | NUR ---
HERE FOR DAILY IV DAPTOMYCIN. REPORTS DOING OK. NO CHANGE NOTED IN R 2ND FINGER SINCE YESTERDAY PER PT. DID HAVE SOME NAUSEA THIS MORNING AND TOOK A ZOFRAN TABLET. FEELING SLEEPY TODAY. DENIES FEVER/CHILLS/SWEATS. NO DIARRHEA. STATES TRYING TO DRINK PLENTY OF FLUIDS AND EAT. TOLERATED TODAY'S INFUSION WITHOUT INCIDENT. LABS DRAWN PER PICC TODAY. PT DISMISSED IN STABLE CONDITION. WILL PLAN TO SEE DR. HADDAD IN CLINIC ON THURSDAY.
== END ==
LOC: OPONC 01:16
PROVIDERS: Specialist
DX: M00.9 Pyogenic arthritis, unspecified (principal)
CPT/HCPCS: 95000

== ENCOUNTER → 2018-08-19 | Outpatient (CLI) | payer OTHER ==
[~2018-08-19] MED LIST changes: -ATORVASTATIN CA40 MG PO; +DAPTOMYCIN500 MG IV; -DEXILANT30 MG PO; +DEXILANT60 MG PO; +DIFLUCAN100 MG PO; +DOXYCYCLINE 10100 MG PO; +INVANZ1 GM IV; +IRON325 PO; +LIPITOR80 MG PO; +NEURONTIN 300300 M1 PO; +REQUIP XL2 MG PO; -REQUIP5 MG PO
[2018-08-19 09:00] VITALS: BP 115/63
--- NOTE | 2018-08-19 10:52 | NUR ---
HERE FOR DAILY IV DAPTOMYCIN INFUSION. REPORTS DOING WELL, NO NAUSEA SINCE YESTERDAY MORNING. ENCOURAGED TO CONTINUE TO DRINK FLUIDS AND GET ENOUGH PROTEIN. STATES NO CHANGE IN TIP OF FINGER. INFUSION COMPLETED TODAY WITHOUT INCIDENT. DISMISSED IN STABLE CONDITION. WILL RETURN AGAIN IN THE MORNING.
== END ==
LOC: OPONC 00:42
DX: M00.9 Pyogenic arthritis, unspecified (principal)
CPT/HCPCS: 95000

== ENCOUNTER → 2018-08-20 | Outpatient (CLI) | payer OTHER ==
[2018-08-20 10:13] VITALS: BP 132/74
--- NOTE | 2018-08-20 11:09 | NUR ---
HERE FOR DAILY IV DAPTOMYCIN INFUSION. REPORTS DOING OK. A LITTLE INCREASE IN PAIN R 2ND FINGER AND SLIGHT NAUSEA. STATES BOTH CONTROLLED WITH HER ZOFRAN AND HYDROCODONE. SAW DR HADDAD TODAY--HE EVALUATED FINGER THEN REDRESSED BY NURSE. PT WILL SEE DR. ALANIS THIS AFTERNOON. FINGERTIP IS WARM, HAS FEELING, APPEARS TO HAVE GOOD CIRCULATION. SUTURES INTACT. NO DRAINAGE NOTED. PT TOLERATED INFUSION WITHOUT INCIDENT. DISMISSED IN STABLE CONDITION. WILL RECEIVE WEEKEND INFUSIONS IN THE ED AND RETURN TO THE CLINIC ON Thursday.
== END ==
LOC: OPONC 09:31
DX: M00.041 Staphylococcal arthritis, right hand (principal); B95.62 Methicillin resistant Staphylococcus aureus infection as the cause of diseases classified elsewhere
CPT/HCPCS: 95000

== ENCOUNTER → 2018-08-22 | Outpatient (CLI) | payer OTHER ==
[~2018-08-22] MED LIST changes: +ATORVASTATIN CA40 MG PO; -DAPTOMYCIN500 MG IV; +DEXILANT30 MG PO; -DEXILANT60 MG PO; -DIFLUCAN100 MG PO; -DOXYCYCLINE 10100 MG PO; -INVANZ1 GM IV; -IRON325 PO; -LIPITOR80 MG PO; -NEURONTIN 300300 M1 PO; -REQUIP XL2 MG PO; +REQUIP5 MG PO
== END ==
LOC: OPONC 08:27
DX: M00.9 Pyogenic arthritis, unspecified (principal)
CPT/HCPCS: 95000

== ENCOUNTER → 2018-08-23 | Outpatient (CLI) | payer OTHER ==
[2018-08-23 10:12] VITALS: BP 102/44
--- NOTE | 2018-08-23 13:52 | NUR ---
IN FOR DAILY DAPTOMYCIN INFUSION. DENIED N/V/D, FEVER/CHILLS. STATED TAKING ZOFRAN FOR NAUSEA AND HAS COMPLETE RELIEF AND IS TOLERATING HER DIET. TOLERATED INFUSION WITHOUT INCIDENT. PICC SITE WNL WITH GOOD BLOOD RETURN. VITAL SIGNS STABLE. TO RETURN TOMORROW. DISMISSED IN STABLE CONDITION.
== END ==
LOC: OPONC 01:38
DX: M00.9 Pyogenic arthritis, unspecified (principal)
CPT/HCPCS: 95000

== ENCOUNTER → 2018-08-24 | Outpatient (CLI) | payer OTHER ==
[2018-08-24 11:22] VITALS: BP 108/64
--- NOTE | 2018-08-24 11:25 | NUR ---
IN FOR DAILY DAPTOMYCIN INFUSION FOR RT 2ND FINGER DIP JOINT SEPTIC ARTHRITIS. STATED FEELING OK. CONTINUES TO HAVE NAUSEA AFTER INFUSION. TAKES A ZOFRAN WITH COMPLETE RELIEF. DENIES VOMITING, FEVER, CHILLS, MUSCLE WEAKNESS. RATED PAIN TO RT 2ND FINGER #3. STATED TOOK SOME PAIN MEDICINE PRIOR TO ARRIVAL. TOLERATED INFUSION WITHOUT INCIDENT. PICC LINE WNL, GOOD BLOOD RETURN. DISMISSED POST INFUSION IN GOOD CONDITION.
== END ==
LOC: OPONC 00:40
DX: M00.9 Pyogenic arthritis, unspecified (principal)
CPT/HCPCS: 95000

== ENCOUNTER → 2018-08-25 | Outpatient (CLI) | payer OTHER ==
[2018-08-25 11:10] VITALS: BP 125/65
[2018-08-25 11:39] LABS: HEMATOCRIT 35.2 % (37.0-47.0); HEMOGLOBIN 11.9 gm/dL (12.0-15.0); MCH 26.2 pg (26.0-34.0); MCHC 33.7 g/dL (28.0-37.0); MCV 77.9 fL (80.0-100.0); RBC 4.52 mil/uL (4.20-5.00); RDW 16.5 % (10.5-14.5); WBC 4.5 thou/uL (4.0-11.0)
--- NOTE | 2018-08-25 11:50 | NUR ---
HERE FOR DAILY DAPTOMYCIN INFUSION. REPORTS DOING WELL, JUST TIRED. NO NAUSEA OR DIARRHEA REPORTED. GETTING BY WITH 1-2 PAIN PILLS/DAY FOR R FINGER PAIN. DESCRIBES THIS SOMETIMES SHARP OR ACHY THEN SOMETIMES A BURNING PAIN. CONTINUES TO DO DAILY DRG CHANGES AND IS KEEPING FINGER DRY. LABS DRAWN TODAY FROM PICC AND DRESSING CHANGE DONE. SITE LOOKS GOOD. PT DISMISSED POST INFUSION WITH NO CONCERNS NOTED. WILL RETURN IN THE MORNING.
[2018-08-25 11:54] LABS: ALBUMIN 3.5 g/dL (3.4-5.0); CALCIUM 9.2 mg/dL (8.5-10.1); CREATININE 0.7 mg/dL (0.6-1.0); POTASSIUM 3.8 mmol/L (3.5-5.1); TOTAL BILIRUBIN 0.2 mg/dL (<0.1-1.0); TOTAL PROTEIN 7.3 g/dL (6.4-8.2)
== END ==
LOC: OPONC 00:15
PROVIDERS: Specialist
DX: M00.9 Pyogenic arthritis, unspecified (principal)
CPT/HCPCS: 95000

== ENCOUNTER → 2018-08-26 | Outpatient (CLI) | payer OTHER ==
[2018-08-26 10:15] VITALS: BP 111/69
--- NOTE | 2018-08-26 12:05 | NUR ---
HERE FOR DAILY IV DAPTOMYCIN. REPORTS DOING WELL. DOING DAILY DRESSING CHANGES ON HER FINGER. OCCASIONAL NAUSEA WHICH SHE STATES IS RELIEVED WITH THE ZOFRAN. NO NOTED FEVER/CHILLS/SWEATS. NO OTHER ISSUES NOTED. TOLERATED INFUSION TODAY WITHOUT INCIDENT. DISMISSED IN STABLE CONDITION. SCHEDULED TO RETURN IN THE MORNING.
== END ==
LOC: OPONC 00:49
DX: M00.9 Pyogenic arthritis, unspecified (principal)
CPT/HCPCS: 95000

== ENCOUNTER → 2018-08-27 | Outpatient (CLI) | payer OTHER ==
[2018-08-27 15:25] VITALS: BP 108/63
--- NOTE | 2018-08-27 15:34 | NUR ---
IN FOR DAILY DAPTOMYCIN INFUSION. STATED FEELING OK. CONTINUES WITH MILD PAIN TO FINGER. DENIED FEVER/CHILLS/MUSCLE WEAKNESS. STILL TAKING ZOFRAN FOR NAUSEA. TOLERATED INFUSION WITHOUT INCIDENT. DISMISSED IN GOOD CONDITION.
== END ==
LOC: OPONC 00:36
DX: M00.9 Pyogenic arthritis, unspecified (principal)
CPT/HCPCS: 95000

== ENCOUNTER → 2018-08-28 | Outpatient (CLI) | payer OTHER | LOC: OPONC 10:17 | DX: M00.9 Pyogenic arthritis, unspecified (principal) | CPT/HCPCS: 95000 ==

== ENCOUNTER → 2018-08-29 | Outpatient (CLI) | payer OTHER | LOC: OPONC 09:49 | DX: M00.9 Pyogenic arthritis, unspecified (principal) | CPT/HCPCS: 95000 ==

== ENCOUNTER 2018-08-30 05:25 | Observation (INO) | payer OTHER ==
[~2018-08-30] VITALS: Ht 172.7 cm; Wt 64.9 kg
--- NOTE | ~2018-08-30 | O ---
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 PROCEDURE PERFORMED: Right index finger amputation through the PIP joint. SURGEON: Varsha Witt MD ANESTHESIA: General mask anesthesia. ESTIMATED BLOOD LOSS: 1 mL. TOURNIQUET TIME: Please see intraoperative record, approximately 20 minutes. COMPLICATIONS: None. CONDITION: Stable. DISPOSITION: Recovery room. INDICATIONS: The patient is a 73-year-old female with the above-mentioned diagnosis. We had a long discussion in the preop holding area with both the patient and her regarding the progression of the osteomyelitis to both despite multiple debridements and prolonged IV antibiotics. We discussed the MRI findings, which I reviewed myself as well as the report, which show osteomyelitis of the distal two-thirds of the middle phalanx and the entire distal phalanx. We have previously discussed the most likely poor motion at the DIP joint despite resolution of the infection. We discussed the rationale for at least partial amputation today including the worsening of her osteomyelitis despite debridement and IV antibiotics. We then discussed the 2 potential locations for the amputation, #1 would be at the junction of the proximal and middle thirds of the middle phalanx that most likely would preserve the FDS insertion. This would allow some flexion at the PIP joint; however, by leaving a portion of the middle phalanx she is at a higher risk of needing prolonged antibiotics and not resolving the infection, necessitating more surgery and more proximal level amputation. The second option we discussed was amputation through the proximal interphalangeal joint. I discussed with them that this is more aggressive; however, this is most likely to resolve her issue in the [facility] [address] [place] [address] OPERATIVE REPORT Name: FRANKIANG Room #: 150-1 [facility] M..#: [id number] Admission: 08/30/18 ������������������ Attend Phys: Varsha Witt, Discharge: ������������������ Date of : 49 Report #: [id number] Questions were encouraged and answered. They wished to proceed with amputation through the PIP joint. I confirmed this multiple times verbally. The risks, benefits, alternatives and complications were discussed including but not limited to infection, wound healing problems, stump pain, phantom pain, damage to vessels or nerves. Informed consent was obtained. The correct extremity was identified and labeled by myself after verbal confirmation of the patient as well as visual confirmation and signed informed consent. DESCRIPTION OF PROCEDURE: The patient was brought back to the operative room and placed on the operating table in supine position. She received her normal infusion upon tourniquet deflation. The forearm tourniquet was applied. The arm was elevated, but was not exsanguinated and the tourniquet inflated. The entire procedure was done with a 3.5 times loupe magnification. Next, incision was made with a volar flap from the level of the PIP joint dorsally to the level of the DIP joint volarly. The middle and distal phalanx were removed without difficulty. Middle portion of the middle phalanx was sent to microbiology. A rongeur was used, the bone was fairly soft. A portion of the tissue in the middle portion of the middle phalanx was also sent to microbiology. The cultures were sent for aerobic, anaerobic, fungal, AFB and mycobacteria. Also, the remainder of the finger was sent to pathology. The wound was then thoroughly irrigated with a liter of antibiotic saline. Digital nerves were easily identified. Traction was applied and they were sharply cut in order to decrease postoperative pain or neuroma formation. The wound was then closed with 4-0 Ethibond stitch. Of note, her skin was somewhat friable even at this level, but a significant portion of tension decreasing stitches as well as simple interrupted stitches were placed. The tourniquet was removed. There was nice capillary refill to the digit. The finger was dressed with Adaptic and sterile gauze. She was placed in a bulky dressing. All fingers were pink with brisk capillary refill at the conclusion of the case after deflation of tourniquet. All sponge and needle counts were correct. The patient was transferred to postoperative recovery room in stable condition. ��������������������������������������������� ���������������������������������������� By: ��������������������������������������������� 1455 1514 Varsha Witt MD /ge
[~2018-08-30 05:25] MED LIST changes: -ATORVASTATIN CA40 MG PO; -DEXILANT30 MG PO; +DEXILANT60 MG PO; +LIPITOR80 MG PO; +REQUIP XL2 MG PO; -REQUIP5 MG PO
[2018-08-30 13:47] VITALS: BP 134/72
--- NOTE | 2018-08-31 04:54 | NUR ---
ASSUMED CARE FOR PT@ 1900. PT ON OBESERVATION PRIOR TO RIGHT FINGER AMPUTATION. DRESSING INTACT AND PAIN MED GIVEN FOR MANAGEMENT. ALERT AND ORIENTED X4 AND AMBULATES TO BATHROOM. VSS, POC DONE. WILL CONTINUE TO MONITOR
[2018-08-31 05:43] VITALS: BP 122/72
[2018-08-31 05:45] VITALS: BP 122/72
[2018-08-31 08:25] VITALS: BP 121/70
[2018-08-31 12:56] VITALS: BP 121/70
[2018-08-31 13:50] VITALS: BP 121/70
--- NOTE | 2018-08-31 15:12 | NUR ---
PT A&OX4, VSS/NO DISTRESS, PAIN IN RIGHT INDEX FINGER. PATIENT RECEIVING PAIN MEDICATION TO MANAGE. IV LEFT WRIST TAKEN OUT. PATIENT GOING HOME WITH PICC FOR HOME ANTIBIOTIC THERAPY. PICC INTACT AND PATENT. ALL BELONGINGS WITH PATIENT.
[2018-09-01] MEDS ORDERED: TRAMADOL 50 MG50 MG PO (10:35)
[2018-09-01] MEDS ORDERED: IRON325 PO (10:38)
[2018-09-01] MEDS ORDERED: INVANZ1 GM IV (10:39)
[2018-09-01] MEDS ORDERED: DAPTOMYCIN500 MG IV (10:39)
--- NOTE | 2018-09-01 15:05 | PATH ---
[facility] [address] [place] [address] PATHOLOGY RPT PROCEDURE Name: ANG DOAN Rashaad Room #: 456-P [facility] M.R.#: [id number] ������������������ Admission: 08/30/18 ������������������ Date of : 49 Discharge: 08/31/18 Report #: [id number] Path Case #: [id number] [facility] Accession Number: [id number] . 01 Material submitted: . finger - RIGHT INDEX FINGER. Modifiers: right . 01 Clinical history: . Right index finger osteomyelitis . 02 Diagnosis: Finger, right index finger, amputation: - Acute osteomyelitis associated with destruction of the bone. - Skin and bone margin viable as well as unremarkable. (IUV:english teacher; 09/01/2018) MBR/09/01/2018 . 02 Electronically signed: . Ana Kelly MD, Pathologist NPI- [id number] . 01 Gross description: . The specimen is received in formalin, labeled "Ang Doan, right index finger". Received is an amputated digit measuring 4.4 x 2.7 x 1.6 cm in greatest dimensions. The bone margin is smooth and concave in appearance, consistent with disarticulation. The bone and soft tissue margins are inked black. On the plantar aspect of the specimen, the proximal one half exposes underlying soft tissue and bone. The nail is present displaying a light huston and slightly thickened appearance. The skin is pale huston and sloughing in appearance. There are multiple sutures present immediately proximal to the nailbed surrounded by light huston to light brown, focally crusted skin measuring 1.3 x 1.0 cm. The sutures are removed. A full-thickness longitudinal cross-section is submitted from proximal to distal aspects in cassettes A1 and A2, following decalcification. (CAA; 08/31/2018) QAC/QAC . 02 Pathologist provided ICD-10: M86.141, M89.8X4 . 02 CPT . 686797, [id number] Specimen Comment: A courtesy copy of this report has been sent to Specimen Comment: [phone]. Specimen Comment: Report sent to Performed at: [address] [place] [address] PATHOLOGY RPT PROCEDURE Name: ANG DOAN Room #: 456-P [facility]#: [id number] ������������������ Admission: 08/30/18 ������������������ Date of : 49 Discharge: 08/31/18 Report #: [id number] Path Case #: [id number] [address] [facility] [address], [place] [id number] MD Sudhir Pack MD Phone: [phone] Performed at: [address] [id number] MD Ana Kelly MD Phone: [phone]
--- NOTE | 2018-09-03 13:35 | HC ---
[facility] [place] [address] CONSULTATION Name: FRANKIANG Rashaad Room #: 456-P [facility] Kael#: [id number] Admission: 08/30/18 ������������������ Attend Phys: Varsha Witt, Discharge: 08/31/18 ������������������ Date of : 49 Report #: [id number] THIS REPORT FOR: //name// CC: FAM unknown Varsha Witt DATE OF SERVICE: 08/31/2018 TYPE OF REPORT: Infectious disease consultation. REASON FOR CONSULTATION: I was asked by Dr. Witt to evaluate the patient concerning osteomyelitis of her right second finger. HISTORY OF PRESENT ILLNESS: The patient was a 73-year old who I saw initially second week of July where she had a surgical site infection following a distal phalanx mucous cyst debridement that involved the DIP joint of the right second finger. Following excision and debridement, the patient developed increased pain and swelling and erythema. It is evident that infection extended up to the MCP joint. Initially placed on cephalexin without improvement. She was taken back to surgery for surgical debridement where cultures revealed MRSA. She was treated with daptomycin in the outpatient infusion area. After 2 weeks of treatment, she had further wound healing issues and was found to have osteomyelitis of the distal phalanx. On 08/11/2018, she underwent further incision and drainage with debridement of subcutaneous tissue and bone. Cultures from this procedure were no growth. She continued on IV antibiotic therapy including daptomycin. Inflammatory markers were negative. On 08/30/2018, she underwent amputation through the PIP joint due to progressive osteomyelitis of the mid and distal phalanx that was evident on examination and x-rays. No other intraoperative findings were noted. Awaiting pathology and microbiology reports. ALLERGIES: CODEINE with GI upset. MEDICATIONS: As noted on her MAY. PAST MEDICAL HISTORY: Unchanged from previous consultation. FAMILY HISTORY: Unchanged from previous consultation. SOCIAL HISTORY: Unchanged from previous consultation. REVIEW OF SYSTEMS: Ten-point review is negative other than what is described above. PHYSICAL EXAMINATION: VITAL SIGNS: Afebrile and hemodynamically stable, alert and cooperative, in [address] [address] CONSULTATION Name: FRANKIANG Room #: 456-P [facility] M.R.#: [id number] Admission: 08/30/18 ������������������ Attend Phys: Varsha Witt, Discharge: 08/31/18 ������������������ Date of : 49 Report #: [id number] distress. EXTREMITIES: Right upper extremity PICC was without erythema or drainage. Right second finger was dressed and dry. CHEST: Clear. HEART: Regular. ABDOMEN: Soft and nontender. No other joint involvement noted. LABORATORY STUDIES: Reviewed. Cultures are pending. Pathology reports pending. RADIOLOGICAL DATA: X-rays reviewed. IMPRESSION: Methicillin-resistant Staphylococcus aureus infection of the right second finger distal interphalangeal joint with associated osteomyelitis following a distal phalanx mucous cyst excision. Unclear why the patient has progressed at this point, given the fact that her previous cultures revealed methicillin-susceptible Staphylococcus aureus from 07/27/2018 that was otherwise fairly sensitive and that her followup cultures on 08/11/2018 were no growth with Gram stain showing no wbc's or bacteria. We will have to see what cultures show from this surgical procedure. RECOMMENDATIONS: We will continue with daptomycin and ertapenem pending further culture results. I will reassess the patient in 3 days to assess her operative site and microbiology reports. By then, we should have path reports back as well. ��������������������������������������������� <ELECTRONICALLY SIGNED> ���������������������������������������� By: Keven Gonzalez MD ��������������������������������������������� 09/03/18 1335 1615 2317 Keven Gonzalez MD /nt
[2018-09-03] MEDS ORDERED: DOXYCYCLINE 10100 MG PO (17:54)
[2018-09-03] MEDS ORDERED: DIFLUCAN100 MG PO (17:54)
[2018-09-03] MEDS ORDERED: NEURONTIN 300300 M1 PO (17:55)
== END 2018-08-31 15:15 | disposition home or self-care (01) ==
LOC: OR 05:25 → TBA 05:25 → OR 16:22 → 4W 17:59 → OR 18:00 → 4W 18:00 → ENTRNSPT 08-31 13:37 → EDTRNSPTSTS 08-31 13:41 → 4W 08-31 15:15
PROVIDERS: ADMIT Orthopaedic Surgery Hand Surgery
DX: M86.8X4 Other osteomyelitis, hand (principal); E11.9 Type 2 diabetes mellitus without complications; I51.9 Heart disease, unspecified; Z79.899 Other long term (current) drug therapy; Z90.710 Acquired absence of both cervix and uterus; Z96.651 Presence of right artificial knee joint; Z98.890 Other specified postprocedural states; Z88.5 Allergy status to narcotic agent
CPT/HCPCS: 10047; 50010; 50101; 50386; 56526; 57006; 57091; 57178; 62110; 62900; 70005

== ENCOUNTER → 2018-09-01 | Outpatient (CLI) | payer OTHER ==
[~2018-09-01] MED LIST changes: +DAPTOMYCIN500 MG IV; +DIFLUCAN100 MG PO; +DOXYCYCLINE 10100 MG PO; +INVANZ1 GM IV; +IRON325 PO; +NEURONTIN 300300 M1 PO
[2018-09-01 10:10] VITALS: BP 119/63
--- NOTE | 2018-09-01 11:30 | NUR ---
HERE FOR DAILY IV ANTIBIOTICS--NOW ADDING ERTAPENEM TO THE DAPTOMYCIN. PT JUST DISMISSED FROM THE HOSPITAL YESTERDAY POST AMPUTATION OF TIP OF RIGHT INDEX FINGER. ORIGINAL POST OP DRESSING D/I. PT STATES SHE WAS INSTRUCTED TO LEAVE THIS ON AND DRY UNTIL OFFICE VISIT WITH DR. ALANIS NEXT WEEK ON . PT CONTINUES TO REPORT PAIN IN FINGER WITH ADEQUATE RELIEF WITH PAIN PILLS. DENIES N/V/DIARRHEA, FEVER/CHILLS/SWEATS. LOOKS TIRED. STATES DID NOT SLEEP WELL LAST NIGHT. PICC SITE LOOKS GOOD, EXCELLENT BLOOD RETURN, DRESSING CHANGE DONE TODAY. PT TOLERATED BOTH IV ANTIBIOTIC INFUSIONS AND DISMISSED IN STABLE CONDITION. WILL RETURN AGAIN IN THE MORNING.
== END ==
LOC: OPONC 00:46
DX: M86.8X4 Other osteomyelitis, hand (principal); B95.62 Methicillin resistant Staphylococcus aureus infection as the cause of diseases classified elsewhere
CPT/HCPCS: 95000

== ENCOUNTER → 2018-09-02 | Outpatient (CLI) | payer OTHER ==
[2018-09-02 12:42] VITALS: BP 115/76
--- NOTE | 2018-09-02 12:46 | NUR ---
IN FOR DAPTOMYCIN AND ERTAPENEM INFUSIONS FOR RT 2ND FINGER INFECTION, S/P AMPUTATION TIP OF FINGER ON 08/30/18. PATIENT STATED FEELING OK. STILL HAS NAUSEA AND IS TAKING ZOFRAN. STATED MINIMAL PAIN, RATING RT 2ND FINGER PAIN A #3. TAKING HYDROCODONE NEEDED. DENIED DIARRHEA, FEVER, CHILLS. TOLERATED BOTH INFUSIONS WELL WITH NO ADVERSE REACTION NOTED. TO RETURN TOMORROW FOR THE SAME AND TO SEE DR. HADDAD. DISMISSED IN STABLE CONDITION.
== END ==
LOC: OPONC 00:26
DX: M86.8X4 Other osteomyelitis, hand (principal); M00.9 Pyogenic arthritis, unspecified; A49.02 Methicillin resistant Staphylococcus aureus infection, unspecified site
CPT/HCPCS: 95000

== ENCOUNTER → 2018-09-03 | Outpatient (CLI) | payer OTHER ==
[2018-09-03 12:45] VITALS: BP 103/67
--- NOTE | 2018-09-03 13:33 | NUR ---
HERE FOR LAST DAY OF IV ANTIBIOTICS. DR. HADDAD ROUNDED. DISCUSSED PLAN WITH PT AND DTR INCLUDING NEED TO KEEP DIABETES WELL CONTROLLED, F/U WITH HIM ON TRACY BEFORE SEEING DR. ALANIS, START ON ORAL MEDS, CALL IF ANY ISSUES. PT AND DTR VERBALIZED UNDERSTANDING OF PLAN. PT TOLERATED INFUSIONS TODAY WITHOUT INCIDENT. R 2ND FINGER DRSG REMAINS D/I. PICC DC'D POST INFUSION WITHOUT INCIDENT. PT INSTRUCTED TO REMOVE DRESSING TOMORROW. PT CONTINUES TO APPEAR FATIGUED. OCCASIONAL NAUSEA. PAIN STILL AN ISSUE. DR. HADDAD ADDING GABAPENTIN. PT DISMISSED IN STABLE CONDITION. DTR WILL TAKE SCRIPTS TO PHARMACY TO BE FILLED.
--- NOTE | 2018-09-06 10:22 | HC ---
[facility] [place] [address] CONSULTATION Name: ANG DOAN Room #: REG [facility]#: [id number] Admission: 09/03/18 ������������������ Attend Phys: Keven Gonzalez MD Discharge: ������������������ Date of : 49 Report #: [id number] THIS REPORT FOR: //name// CC: Keven FERMIN unknown DATE OF SERVICE: 09/03/2018 HISTORY OF PRESENT ILLNESS: The patient returns to the outpatient infusion area following amputation of the right second mid and distal phalanx for underlying osteomyelitis. She is postoperative day #4 from her amputation. Still has moderate amount of pain. No fever, chills or sweats. Has a right upper extremity PICC, which is functioning well. There has been no drainage on her dressing. She has been taking hydrocodone for her pain with incomplete relief. Culture results showed normal skin roosevelt and few yeast. Fungus and mycobacterial cultures negative. These cultures were from the volar aspect of her mid phalanx at the leading edge of her osteomyelitis. Pathology showed evidence of osteomyelitis with clean border from her amputation site. REVIEW OF SYSTEMS: Her blood glucose levels have been less than 150. No nausea, vomiting, diarrhea, dysuria or frequency. No cough or sputum production. PHYSICAL EXAMINATION: VITAL SIGNS: Afebrile and hemodynamically stable. GENERAL: Alert and cooperative. EXTREMITIES: Right upper extremity PICC was without erythema or drainage. Right second finger was in surgical wrap. Dressing was dry and intact. Pulses in the wrist were normal. Sensation in the remainder of fingers is normal. LABORATORY STUDIES: None. IMPRESSION: Right second finger osteomyelitis with mixed roosevelt identified from her most recent cultures. Initial cultures had revealed Methicillin-resistant Staphylococcus aureus from the tissue on 07/27/2018. Despite anti-staphylococcal coverage, she continued to progress with osteomyelitis developing in the middle phalanx. I am suspecting microvascular ischemia from her diabetes, which allowed this process to persist. There has been no evidence of resistant bacterial growth. I am suspecting normal roosevelt involving this area of osteomyelitis and ischemia. RECOMMENDATIONS: We will continue with oral antibiotic therapy including doxycycline for normal skin roosevelt and fluconazole for the few yeast that were identified. We will see her back in 1 week along with Orthopedic Surgery evaluation. For her pain, we will add gabapentin. Suspect most of this is [address] [address] CONSULTATION Name: FRANKIANG Rashaad Room #: REG [facility] Kael#: [id number] Admission: 09/03/18 ������������������ Attend Phys: Keven Gonzalez MD Discharge: ������������������ Date of : 49 Report #: [id number] neuropathic pain. She will contact me if any further issues arise prior to her followup visit. Case was discussed with nursing staff at the bedside as well as Dr. Witt by phone. ��������������������������������������������� <ELECTRONICALLY SIGNED> ���������������������������������������� By: Keven Gonzalez MD ��������������������������������������������� 09/06/18 1022 1328 1536 Keven Gonzalez MD /nt
== END ==
LOC: OPONC 07:29
DX: M86.8X4 Other osteomyelitis, hand (principal); A49.02 Methicillin resistant Staphylococcus aureus infection, unspecified site; M00.9 Pyogenic arthritis, unspecified
CPT/HCPCS: 95000

== ENCOUNTER → 2018-09-14 | Outpatient (CLI) | payer OTHER | LOC: ULTRA 15:48 | DX: M79.644 Pain in right finger(s) (principal) ==